=== PATIENT | female | born 1960 | race Native Hawaiian/Other Pacific Islander ===

== ENCOUNTER 2018-09-14 08:23 | Outpatient (CLI) | payer OTHER ==
[2018-09-14 08:49] LABS: PLATELET COUNT 234 K/uL (152-353)
[2018-09-14 09:08] LABS: POTASSIUM 3.9 mmol/L (3.6-5.2)
== END 2018-09-14 23:08 | disposition home or self-care (01) ==
LOC: LABW 08:23
PROVIDERS: Internal Medicine Cardiovascular Disease
DX: R07.89 Other chest pain (principal); E11.9 Type 2 diabetes mellitus without complications; E78.5 Hyperlipidemia, unspecified
CPT/HCPCS: 36415; 80053; 80061; 82248; 83036; 84443; 85027